=== PATIENT | male | born 1950 | race Caucasian/White ===

== ENCOUNTER 2017-05-26 09:34 | Emergency (ER) | payer OTHER, MEDICARE ==
[~2017-05-26] VITALS: Ht 177.8 cm; Wt 90.0 kg
[~2017-05-26 09:34] MED LIST: ASPI81CH PO; ATOR10 PO; FLAX PO; GLUC500 PO; GUAI600T33 PO; MAGCIT300 PO; PROSTATE HEALT1 EACH PO; Prilosec40 MG PO
[2017-05-26] MEDS ORDERED: TAMS.4ER PO (10:17)
[2017-05-26] MEDS ORDERED: MAGOXI400 PO (10:18)
[2017-05-26] MEDS ORDERED: Prednisone20 MG PO (10:19)
[2017-05-26] MEDS ORDERED: Zithromax250 MG PO (10:19)
[2017-05-26] MEDS ORDERED: Phenergan Vc-C120 ML PO (10:19)
== END 2017-05-26 10:26 | disposition home or self-care (01) ==
LOC: ER 09:34
DX: J42 Unspecified chronic bronchitis (principal); J18.9 Pneumonia, unspecified organism; I10 Essential (primary) hypertension; E78.5 Hyperlipidemia, unspecified; K21.9 Gastro-esophageal reflux disease without esophagitis; F03.90 Unspecified dementia, unspecified severity, without behavioral disturbance, psychotic disturbance, mood disturbance, and anxiety; Z79.82 Long term (current) use of aspirin; Z79.899 Other long term (current) drug therapy; Z90.89 Acquired absence of other organs
CPT/HCPCS: 94640; 99283

== ENCOUNTER 2018-10-28 12:25 | Emergency (ER) | payer MEDICARE ==
[~2018-10-28] VITALS: Ht 177.8 cm; Wt 92.1 kg
[~2018-10-28 12:25] MED LIST changes: +MAGOXI400 PO; +Phenergan Vc-C120 ML PO; +Prednisone20 MG PO; +TAMS.4ER PO; +Zithromax250 MG PO
[2018-10-28] MEDS ORDERED: FINA5 PO (12:58)
[2018-10-28] MEDS ORDERED: ASPI81CH PO (12:58)
[2018-10-28] MEDS ORDERED: ATOR10 PO (12:58)
[2018-10-28 13:16] LABS: BASOPHILS ABSOLUTE AUTO 0.06 K/mm3 (0.00-0.23); BASOPHILS PERCENT AUTO 1 % (0-2); EOSINOPHILS ABSOLUTE AUTO 0.33 K/mm3 (0.00-0.68); EOSINOPHILS PERCENT AUTO 6 % (0-6); Hematocrit 42.2 % (37.0-53.0); Hemoglobin 14.2 g/dL (13.5-17.5); IMMATURE GRAN ABSOLUTE AUTO 0.01 K/mm3 (0.00-0.10); IMMATURE GRAN PERCENT AUTO 0 % (0-1); LYMPHOCYTES ABSOLUTE AUTO 2.07 K/mm3 (0.84-5.20); LYMPHOCYTES PERCENT AUTO 35 % (21-46); MONOCYTES ABSOLUTE AUTO 0.66 K/mm3 (0.16-1.47); MONOCYTES PERCENT AUTO 11 % (4-13); Mean Corpuscular HGB 32.3 pg (26.0-34.0); Mean Corpuscular HGB Conc 33.6 g/dL (31.5-36.5); Mean Corpuscular Volume 96 fL (80-100); NEUTROPHILS ABSOLUTE AUTO 2.72 K/mm3 (1.96-9.15); NEUTROPHILS PERCENT AUTO 47 % (41-73); Platelet Count 196 K/mm3 (150-400); RDW Coefficient Variation 13.5 % (11.7-14.2); RDW Standard Deviation 48.1 fL (35.1-46.3); Red Blood Cell Count 4.39 M/mm3 (4.30-5.90); White Blood Cell Count 5.85 K/mm3 (4.00-11.30)
[2018-10-28 13:30] LABS: Alanine Aminotransfer (ALT/SGP 35 U/L (12-78); Albumin, Blood 4.1 g/dL (3.4-5.0); Albumin/Globulin Ratio 1.2 (0.8-1.8); Alk Phos 78 U/L (50-136); Anion Gap 4 mmol/L (6-16); Aspartate Aminotrans (AST/SGOT 22 U/L (12-37); Bilirubin, Total 0.7 mg/dL (0.1-1.0); Blood Urea Nitrogen 21 mg/dL (8-24); Bun/Creatinine Ratio 26.2 (12.0-20.0); CO2, Blood 27 mmol/L (21-32); Calcium, Blood 8.9 mg/dL (8.5-10.1); Chloride, Blood 109 mmol/L (98-108); Globulin, Blood 3.4 g/dL (2.2-4.0); Glomerular Filtration Rate >60 (60-); Glucose, Blood 94 mg/dL (70-99); Potassium, Blood 4.2 mmol/L (3.5-5.5); Sodium, Blood 140 mmol/L (136-145); Total Protein, Blood 7.5 g/dL (6.4-8.2); Troponin I <0.015 ng/mL (0.000-0.040)
== END 2018-10-28 14:40 | disposition home or self-care (01) ==
LOC: ER 12:25
PROVIDERS: Physician Assistant
DX: R07.9 Chest pain, unspecified (principal); G47.33 Obstructive sleep apnea (adult) (pediatric); Z79.899 Other long term (current) drug therapy; Z79.82 Long term (current) use of aspirin; I10 Essential (primary) hypertension; E78.5 Hyperlipidemia, unspecified; K21.9 Gastro-esophageal reflux disease without esophagitis; F03.90 Unspecified dementia, unspecified severity, without behavioral disturbance, psychotic disturbance, mood disturbance, and anxiety
CPT/HCPCS: 36415; 71046; 80053; 84484; 85025; 93005; 93010; 99285-25

== ENCOUNTER 2020-06-28 12:31 | Emergency (ER) | payer MEDICARE ==
[~2020-06-28] VITALS: Ht 177.8 cm; Wt 88.5 kg
[~2020-06-28 12:31] MED LIST changes: +FINA5 PO
[2020-06-28 13:21] LABS: BASOPHILS ABSOLUTE AUTO 0.04 K/mm3 (0.00-0.23); BASOPHILS PERCENT AUTO 1 % (0-2); EOSINOPHILS ABSOLUTE AUTO 0.25 K/mm3 (0.00-0.68); EOSINOPHILS PERCENT AUTO 5 % (0-6); Hematocrit 42.6 % (37.0-53.0); Hemoglobin 14.4 g/dL (13.5-17.5); IMMATURE GRAN ABSOLUTE AUTO 0.01 K/mm3 (0.00-0.10); IMMATURE GRAN PERCENT AUTO 0 % (0-1); LYMPHOCYTES PERCENT AUTO 37 % (21-46); MONOCYTES ABSOLUTE AUTO 0.57 K/mm3 (0.16-1.47); MONOCYTES PERCENT AUTO 12 % (4-13); Mean Corpuscular HGB 32.1 pg (26.0-34.0); Mean Corpuscular HGB Conc 33.8 g/dL (31.5-36.5); Mean Corpuscular Volume 95 fL (80-100); Mean Platelet Volume 10.7 fL (9.1-12.4); NEUTROPHILS ABSOLUTE AUTO 2.24 K/mm3 (1.96-9.15); NEUTROPHILS PERCENT AUTO 46 % (41-73); Platelet Count 189 K/mm3 (150-400); RDW Coefficient Variation 13.4 % (11.7-14.2); RDW Standard Deviation 47.2 fL (35.1-46.3); Red Blood Cell Count 4.49 M/mm3 (4.30-5.90); White Blood Cell Count 4.91 K/mm3 (4.00-11.30)
[2020-06-28 13:37] LABS: Alanine Aminotransfer (ALT/SGP 28 U/L (12-78); Albumin, Blood 3.9 g/dL (3.4-5.0); Albumin/Globulin Ratio 1.1 (0.8-1.8); Alk Phos 87 U/L (50-136); Anion Gap 5 mmol/L (6-16); Aspartate Aminotrans (AST/SGOT 20 U/L (12-37); Bilirubin, Total 0.5 mg/dL (0.1-1.0); Blood Urea Nitrogen 18 mg/dL (8-24); Bun/Creatinine Ratio 23.1 (12.0-20.0); CO2, Blood 27 mmol/L (21-32); Calcium, Blood 8.9 mg/dL (8.5-10.1); Chloride, Blood 108 mmol/L (98-108); Creatinine, Blood 0.78 mg/dL (0.60-1.20); Globulin, Blood 3.7 g/dL (2.2-4.0); Glomerular Filtration Rate >60 (60-); Glucose, Blood 97 mg/dL (70-99); Potassium, Blood 4.3 mmol/L (3.5-5.5); Sodium, Blood 140 mmol/L (136-145); Total Protein, Blood 7.6 g/dL (6.4-8.2); Troponin I <0.015 ng/mL (0.000-0.040)
== END 2020-06-28 17:07 | disposition home or self-care (01) ==
LOC: ER 12:31
PROVIDERS: Physician Assistant
DX: R07.89 Other chest pain (principal); M54.9 Dorsalgia, unspecified; Z79.82 Long term (current) use of aspirin; Z79.899 Other long term (current) drug therapy
CPT/HCPCS: 36415; 71046; 80053; 84484; 85025; 93005; 93010; 99283-25

== ENCOUNTER 2022-08-25 16:43 | Observation (INO) | payer OTHER ==
[~2022-08-25] VITALS: Ht 177.8 cm; Wt 85.3 kg
[2022-08-25 17:13] LABS: BASOPHILS ABSOLUTE AUTO 0.06 K/mm3 (0.00-0.23); BASOPHILS PERCENT AUTO 1 % (0-2); EOSINOPHILS ABSOLUTE AUTO 0.34 K/mm3 (0.00-0.68); EOSINOPHILS PERCENT AUTO 5 % (0-6); Hematocrit 39.6 % (37.0-53.0); Hemoglobin 13.7 g/dL (13.5-17.5); IMMATURE GRAN ABSOLUTE AUTO 0.02 K/mm3 (0.00-0.10); IMMATURE GRAN PERCENT AUTO 0 % (0-1); LYMPHOCYTES PERCENT AUTO 36 % (21-46); MONOCYTES ABSOLUTE AUTO 0.59 K/mm3 (0.16-1.47); MONOCYTES PERCENT AUTO 9 % (4-13); Mean Corpuscular HGB 32.2 pg (26.0-34.0); Mean Corpuscular HGB Conc 34.6 g/dL (31.5-36.5); Mean Corpuscular Volume 93 fL (80-100); Mean Platelet Volume 10.5 fL (9.1-12.4); NEUTROPHILS ABSOLUTE AUTO 3.07 K/mm3 (1.96-9.15); NEUTROPHILS PERCENT AUTO 48 % (41-73); Platelet Count 190 K/mm3 (150-400); RDW Coefficient Variation 13.6 % (11.7-14.2); RDW Standard Deviation 46.1 fL (35.1-46.3); Red Blood Cell Count 4.25 M/mm3 (4.30-5.90); White Blood Cell Count 6.38 K/mm3 (4.00-11.30)
[2022-08-25] MEDS ORDERED: TAMSULOSIN HCL0.4 M1 PO (17:38)
[2022-08-25] MEDS ORDERED: GLUC500 PO (17:38)
[2022-08-25 17:54] LABS: Albumin, Blood 3.9 g/dL (3.4-5.0); Albumin/Globulin Ratio 1.2 (0.8-1.8); Bilirubin, Total 0.3 mg/dL (0.1-1.0); Bun/Creatinine Ratio 22.7 (12.0-20.0); Calcium, Blood 8.8 mg/dL (8.5-10.1); Creatinine, Blood 0.84 mg/dL (0.60-1.20); Globulin, Blood 3.3 g/dL (2.2-4.0); Potassium, Blood 3.9 mmol/L (3.5-5.5); Total Protein, Blood 7.2 g/dL (6.4-8.2)
[2022-08-25 23:06] VITALS: BP 119/67
--- NOTE | 2022-08-25 23:59 | NUR ---
PT ARRIVEED DTO FLOOR BY W/C PT ABLE TO AMBULATE IN RTOOM AND TRANSFER SELF TO BED. PT DENIED ANY CHEST PAIN OR OTHER PAIN AT THIS TIME. PTS SKIN IS INTACTS NO WOUNDS FEW VERY SM SCRATCHES TO HANDS ARM FROM PET. PT HAS A SM UMBILICAL HERNIA. PT DENIED NEED FOR ANYTHING TO EAT OR DRINK PT WAS UP TO BR TO VOID, ANTI SLIP SOCKS PLACED ON PTS FEET. SCDS ON TELE ON. PT WANTING TO GO TO SLEEP NOW SHOWED PT WHER NURSE CALL LIGHT BUTTONS ARE AND HOW TO USE BED AND CONTROLER. PT VU . CALL LIGHT IN REACH PT TRYING TO SLEEP.
--- NOTE | 2022-08-26 02:23 | NUR ---
SHIFT SUMMERY PT RESTING IN BED, PT DENIED ANY PAIN. NO CHEST PAIN AND NO SOB. PT STEADY OF FEET PT ABLE TO GET UP AND GO TO BR. PT IS CALM AND COOPERATIVE.CALL LIGHT IN REACH.
[2022-08-26 05:20] VITALS: BP 122/79
[2022-08-26 08:09] VITALS: BP 136/82
--- NOTE | 2022-08-26 10:43 | NUR ---
RN NOTE MR REYES HAS DENIED CHEST PAIN OR DISCOMFORT THIS SHIFT. ONE DAY STRESS TEST IN PROCESS. TELEMETRY SINUS PANCHO HIGH 40S-50S PER BIODIESEL PROCESSING TECHNICIAN.
[2022-08-26 14:47] VITALS: BP 145/92
--- NOTE | 2022-08-26 16:10 | NUR ---
DISCHARGE NOTE MR REYES DISCHARGED FROM [facility] WITH HIS AT [id number]. NO CHEST PAIN OR DISCOMFORT TODAY. STRESS TEST COMPLETED. PIV REMOVED INTACT, TELEMETRY REMOVED. PT VERBALISED UNDERSTANDING OF WRITTEN AND VERBAL DISCHARGE INSTRUCTIONS.
== END 2022-08-26 16:15 | disposition home or self-care (01) ==
LOC: ER 16:43 → MEDS 16:44
PROVIDERS: Physician Assistant; ADMIT Internal Medicine
DX: R07.9 Chest pain, unspecified (principal); I45.10 Unspecified right bundle-branch block; N40.0 Benign prostatic hyperplasia without lower urinary tract symptoms; E78.5 Hyperlipidemia, unspecified; G47.33 Obstructive sleep apnea (adult) (pediatric); M25.512 Pain in left shoulder
CPT/HCPCS: 36415; 71046; 78452; 80053; 83690; 84484; 85025; 93005; 93010; 93017; 94762; 96372; 99285-25; A9270; A9500; G0378; J0280; J1650; J2785

== ENCOUNTER 2024-06-26 09:00 | Day surgery (SDC) | payer OTHER ==
[~2024-06-26] VITALS: Ht 177.8 cm; Wt 84.7 kg
[~2024-06-26 09:00] MED LIST changes: +Lactated Ringer's 1,000 ML IV ONE; +TAMSULOSIN HCL0.4 M1 PO; +propofoL 50 ML IV ONE
[2024-06-26] MEDS ORDERED: FINA5 (10:10)
[2024-06-26] MEDS ORDERED: ATOR10 (10:10)
[2024-06-26] MEDS ORDERED: Lactated Ringer's 1,000 ML IV ONE (10:37)
[2024-06-26 11:42] VITALS: BP 101/75
== END 2024-06-26 11:46 | disposition home or self-care (01) ==
LOC: ORSCSDS 09:00
PROVIDERS: Surgery
PROC: 0DJD8ZZ Inspection of Lower Intestinal Tract, Via Natural or Artificial Opening Endoscopic (ICD-10-PCS; principal; 2024-06-26 10:30)
DX: Z12.11 Encounter for screening for malignant neoplasm of colon (principal); R19.5 Other fecal abnormalities; Z80.0 Family history of malignant neoplasm of digestive organs; K21.9 Gastro-esophageal reflux disease without esophagitis; E78.5 Hyperlipidemia, unspecified; Z79.899 Other long term (current) drug therapy
CPT/HCPCS: J2704; J7120